=== PATIENT | female | born 1985 | race Caucasian/White ===

== ENCOUNTER 2017-10-16 08:20 | Day surgery (SDC) | payer BC ==
[2017-10-14 14:19] LABS: BASOPHILS # (AUTO) 0.1 X10'3 (0-0.2); BASOPHILS % (AUTO) 1.1 % (0-1); EOSINOPHILS # (AUTO) 0.2 X10'3 (0-0.9); EOSINOPHILS % (AUTO) 1.8 % (0-6); LYMPHOCYTES % (AUTO) 16.9 % (21-51); MEAN CORPUSCULAR HEMOGLOBIN 31.5 PG (27.0-31.0); MEAN CORPUSCULAR HGB CONC 34.5 % (33.0-36.5); MEAN CORPUSCULAR VOLUME 91.4 FL (78-98); MEAN PLATELET VOLUME 7.9 FL (7.4-10.4); MONOCYTES # (AUTO) 0.7 X10'3 (0-0.9); MONOCYTES % (AUTO) 6.4 % (2-12); NEUTROPHILS # (AUTO) 8.6 X10'3 (1.8-7.7); NEUTROPHILS % (AUTO) 73.8 % (42-75); PRE OP HEMATOCRIT 41.4 % (35.0-45.0); PRE OP HEMOGLOBIN 14.3 g/dL (12.0-16.0); PRE OP PLATELET COUNT 390 X10'3 (140-440); RED BLOOD COUNT 4.53 X10'6 (4.20-5.60); RED CELL DISTRIBUTION WIDTH 13.1 % (11.5-14.5)
[2017-10-14 14:26] LABS: CLARITY,URINE CLEAR (Clear); COLOR,URINE YELLOW (Yellow); GLUCOSE, URINE NEGATIVE (Neg); KETONES,URINE NEGATIVE (Neg); LEUKOCYTE ESTERASE ,URINE NEGATIVE (Neg); NITRITES, URINE NEGATIVE (Neg); OCCULT BLOOD,URINE NEGATIVE (Neg); PROTEIN,URINE NEGATIVE (Neg); UROBILINOGEN,URINE 0.2 E.U/dL (0.2-1.0)
[2017-10-14 14:28] LABS: HCG SERUM QL NEGATIVE
[2017-10-14 14:30] LABS: UA COLLECTION TYPE CLN CATCH MIDSTREAM
[2017-10-14 14:32] LABS: ALBUMIN 3.8 G/DL (3.4-5.0); ALBUMIN/GLOBULIN RATIO 0.9 (1.1-1.5); ALKALINE PHOSPHATASE 72 IU/L (46-116); BLOOD UREA NITROGEN 19 MG/DL (7-18); BUN/CREATININE RATIO 21.1 (6.6-38.0); CALCIUM 8.7 MG/DL (8.5-10.1); CHLORIDE 104 MMOL/L (99-107); PRE OP ALT 25 U/L (30-65); PRE OP ANION GAP 7 (8-16); PRE OP AST 20 U/L (10-37); PRE OP BILIRUB, TOTAL 0.4 MG/DL (0.0-1.0); PRE OP GLUCOSE 95 MG/DL (70-104); PRE OP POTASSIUM 4.1 MMOL/L (3.4-5.1); PRE OP SODIUM 138 MMOL/L (135-145); TOTAL CARBON DIOXIDE 26.7 MMOL/L (24-32); TOTAL PROTEIN 7.9 G/DL (6.4-8.2); eGFR 72 ML/MIN
[2017-10-16] VITALS (17 sets, daily range): BP systolic 98–119; BP diastolic 48–71
[~2017-10-16] VITALS: Ht 160 cm; Wt 95.3 kg
[~2017-10-16 08:20] MED LIST: NO HOME MEDS; ceFOXitin 2 GM ADDvantage bag 100 ML IV ONE; famotidine 20mg tablet PO ONE
[2017-10-16] MEDS: ringers solution, lacted 1,000 ML IV SCH ×2 (09:14→19:55)
[2017-10-16] MEDS ORDERED: clindamycin phosphate 40gm vag cream ONE (10:02)
[2017-10-16] MEDS ORDERED: ringers solution, lacted 1,000 ML IV SCH (10:41)
[2017-10-16] MEDS ORDERED: ondansetron/PF 4mg/2ml inj IV PRN ×2 (10:45→13:00)
[2017-10-16] MEDS ORDERED: morphine 4 MG/ML inj SYRINge IV PRN ×2 (10:45)
[2017-10-16] MEDS ORDERED: proCHLORperazine 10 MG/2 ml inj IV PRN (10:45)
[2017-10-16] MEDS ORDERED: meperidine/PF 25mg/ml syringe IV PRN ×2 (10:45)
[2017-10-16] MEDS ORDERED: sevoflurane 250ml liquid IH ONE (11:07)
[2017-10-16] MEDS ORDERED: midazolam 2 mg/2 ml injection ONE (11:14)
[2017-10-16] MEDS ORDERED: fentaNYL/PF 50MCG/1 ML 2ML syringe ONE (11:14)
[2017-10-16] MEDS ORDERED: propofol inj 20 ML IV ONE (11:15)
[2017-10-16] MEDS ORDERED: LIDOcaine 2% (20mg/ml) 5ml vial ONE (11:15)
[2017-10-16] MEDS ORDERED: dexamethasone sod phosphate 4mg/ml inj. ONE (11:15)
[2017-10-16] MEDS ORDERED: ondansetron/PF 4mg/2ml inj ONE (11:16)
[2017-10-16] MEDS ORDERED: ketorolac trometh. 30mg/ml inj. ONE (11:16)
[2017-10-16] MEDS ORDERED: vasoPRESSIN 20 units/ml inj. ONE (12:01)
[2017-10-16] MEDS ORDERED: meperidine/PF 50mg/ml syringe ONE (12:25)
[2017-10-16] MEDS ORDERED: metoclopramide 5 mg/ml inj IV PRN (13:00)
[2017-10-16] MEDS ORDERED: diphenhydrAMINE 50 mg/ml inj IV PRN (13:00)
[2017-10-16] MEDS ORDERED: normal saline 500ml IV soln 500 ML IV PRN (13:00)
[2017-10-16] MEDS ORDERED: HYDROcodone/acetaminophen 10/325mg tab PO PRN ×2 (13:00)
[2017-10-16] MEDS ORDERED: temazepam 15mg capsule PO PRN (13:00)
[2017-10-16] MEDS ORDERED: LORazepam 2 mg/ml vial IV PRN (13:00)
[2017-10-16] MEDS: meperidine/PF 25mg/ml syringe IV PRN ×2 (14:30→14:41)
[2017-10-16] MEDS: ketorolac trometh. 30mg/ml inj. IV PRN ×2 (15:58→23:59)
[2017-10-16] MEDS: simethicone 80mg chew tab PO SCH ×2 (16:16→22:01)
[2017-10-16] MEDS ORDERED: morphine 4 MG/ML inj SYRINge IV ONE (19:40)
[2017-10-16] MEDS: docusate sod 100mg capsule PO SCH (22:00)
[2017-10-17] VITALS: BP 96/48
[2017-10-17 04:00] VITALS: BP 105/55
[2017-10-17 05:21] LABS: BASOPHILS # (AUTO) 0.1 X10'3 (0-0.2); BASOPHILS % (AUTO) 0.4 % (0-1); EOSINOPHILS # (AUTO) 0.1 X10'3 (0-0.9); EOSINOPHILS % (AUTO) 0.3 % (0-6); HEMATOCRIT 37.5 % (35.0-45.0); LYMPHOCYTES # (AUTO) 1.2 X10'3 (1.1-4.8); LYMPHOCYTES % (AUTO) 5.1 % (21-51); MEAN CORPUSCULAR HEMOGLOBIN 31.8 PG (27.0-31.0); MEAN CORPUSCULAR HGB CONC 34.7 % (33.0-36.5); MEAN CORPUSCULAR VOLUME 91.5 FL (78-98); MEAN PLATELET VOLUME 8.3 FL (7.4-10.4); MONOCYTES # (AUTO) 0.9 X10'3 (0-0.9); MONOCYTES % (AUTO) 3.7 % (2-12); NEUTROPHILS # (AUTO) 21.2 X10'3 (1.8-7.7); NEUTROPHILS % (AUTO) 90.5 % (42-75); PLATELET COUNT 356 X10'3 (140-440); RED CELL DISTRIBUTION WIDTH 12.9 % (11.5-14.5); WHITE BLOOD COUNT 23.4 X10'3 (4.5-11.0)
[2017-10-17 05:32] LABS: ALBUMIN 2.9 G/DL (3.4-5.0); ANION GAP 9 (8-16); BLOOD UREA NITROGEN 12 MG/DL (7-18); CALCIUM 8.4 MG/DL (8.5-10.1); CHLORIDE 105 MMOL/L (99-107); CREATININE 0.86 MG/DL (0.40-0.90); GLUCOSE 119 MG/DL (70-104); POTASSIUM 4.3 MMOL/L (3.5-5.1); SODIUM 140 MMOL/L (135-145); TOTAL CARBON DIOXIDE 26.3 MMOL/L (24-32); eGFR 76 ML/MIN
[2017-10-17] MEDS: simethicone 80mg chew tab PO SCH ×2 (07:09→12:53)
[2017-10-17] MEDS: docusate sod 100mg capsule PO SCH (07:09)
[2017-10-17] MEDS: ketorolac trometh. 30mg/ml inj. IV PRN ×2 (07:09→12:53)
[2017-10-17] MEDS ORDERED: enoxaparin 40mg/0.4ml syringe SQ SCH (08:00)
[2017-10-17 11:00] VITALS: BP 118/64
== END 2017-10-17 14:18 | disposition home or self-care (01) ==
LOC: PAS 08:20 → SUR 3N 13:00 → PAS 10-17 14:18
PROVIDERS: ATTEND Obstetrics & Gynecology Obstetrics
DX: T83.89XA Other specified complication of genitourinary prosthetic devices, implants and grafts, initial encounter (principal); N81.6 Rectocele; N81.11 Cystocele, midline; J45.998 Other asthma; K21.9 Gastro-esophageal reflux disease without esophagitis; E66.01 Morbid (severe) obesity due to excess calories; Z79.1 Long term (current) use of non-steroidal anti-inflammatories (NSAID); Z79.891 Long term (current) use of opiate analgesic; Z68.37 Body mass index [BMI] 37.0-37.9, adult; Z91.048 Other nonmedicinal substance allergy status; Z98.890 Other specified postprocedural states; Z79.899 Other long term (current) drug therapy; Z88.8 Allergy status to other drugs, medicaments and biological substances; Y83.9 Surgical procedure, unspecified as the cause of abnormal reaction of the patient, or of later complication, without mention of misadventure at the time of the procedure; Y92.9 Unspecified place or not applicable
CPT/HCPCS: 36415; 57260; 58562; 80048; 80053; 81003; 84703; 85025; 86885; 86900; 86901; 87070; A4344; A4355; A6255; J0694; J1100; J1650; J1885; J2001; J2175; J2250; J2270; J2405; J2704; J3010; J3490; J7030; J7120; A7000

== ENCOUNTER 2020-10-19 16:22 | Outpatient (CLI) | payer BC ==
[~2020-10-19 16:22] MED LIST changes: -ceFOXitin 2 GM ADDvantage bag 100 ML IV ONE; -famotidine 20mg tablet PO ONE
[2020-10-19 18:26] LABS: % IRON SATURATION 26 % (11-46); IRON 92 UG/DL (49-151); TOTAL IRON BINDING CAPACITY 355 UG/DL (259-388)
[2020-10-19 18:33] LABS: FERRITIN 79 NG/ML (8-252)
[2020-10-19 18:41] LABS: C-REACTIVE PROTEIN < 0.05 MG/DL (0.0-0.5)
[2020-10-19 19:03] LABS: RHEUM FACTOR QUAL REFLEX TITER NEGATIVE (Neg)
[2020-10-19 19:10] LABS: PARTIAL THROMBOPLASTIN TIME 29 SECONDS (22-32)
== END 2020-10-19 23:59 | disposition home or self-care (01) ==
LOC: LAB 16:22
PROVIDERS: ATTEND Family Medicine
DX: Z00.00 Encounter for general adult medical examination without abnormal findings (principal); R53.83 Other fatigue; M79.10 Myalgia, unspecified site; R58 Hemorrhage, not elsewhere classified; H04.123 Dry eye syndrome of bilateral lacrimal glands
CPT/HCPCS: 36415; 82728; 83540; 83550; 85610; 85651; 85730; 86038; 86140; 86430

== ENCOUNTER 2021-05-25 10:57 | Outpatient (CLI) | payer BC ==
[2021-05-25 11:47] LABS: BASOPHILS % (AUTO) 0.5 % (0-1); EOSINOPHILS # (AUTO) 0.2 X10'3 (0-0.9); EOSINOPHILS % (AUTO) 1.7 % (0-6); HEMATOCRIT 40.8 % (35.0-45.0); LYMPHOCYTES # (AUTO) 1.6 X10'3 (1.1-4.8); LYMPHOCYTES % (AUTO) 17.3 % (21-51); MEAN CORPUSCULAR HEMOGLOBIN 31.6 PG (27.0-31.0); MEAN CORPUSCULAR HGB CONC 34.3 g/dL (33.0-36.5); MEAN CORPUSCULAR VOLUME 91.9 FL (78-98); MEAN PLATELET VOLUME 7.5 FL (7.4-10.4); MONOCYTES # (AUTO) 0.7 X10'3 (0-0.9); MONOCYTES % (AUTO) 7.6 % (2-12); NEUTROPHILS # (AUTO) 6.8 X10'3 (1.8-7.7); NEUTROPHILS % (AUTO) 72.9 % (42-75); PLATELET COUNT 366 X10'3 (140-440); RED BLOOD COUNT 4.43 X10'6 (4.20-5.60); RED CELL DISTRIBUTION WIDTH 13.9 % (11.5-14.5); WHITE BLOOD COUNT 9.3 X10'3 (4.5-11.0)
[2021-05-25 11:58] LABS: HEMOGLOBIN A1C 5.4 % (4.5-6.2)
[2021-05-25 12:16] LABS: RHEUM FACTOR QUAL REFLEX TITER NEGATIVE (Neg)
[2021-05-25 13:11] LABS: ALANINE AMINOTRANSFERASE 33 U/L (12-78); ALBUMIN 3.9 G/DL (3.4-5.0); ALBUMIN/GLOBULIN RATIO 1.1 (1.1-1.5); ALKALINE PHOSPHATASE 57 IU/L (46-116); ANION GAP 10 (8-16); ASPARTATE AMINO TRANSFERASE 22 U/L (10-37); BILIRUBIN,TOTAL 0.4 MG/DL (0.1-1.0); BLOOD UREA NITROGEN 20 MG/DL (7-18); BUN/CREATININE RATIO 20.8 (6.6-38.0); C-REACTIVE PROTEIN 0.22 MG/DL (0.0-0.5); CALCIUM 8.6 MG/DL (8.5-10.1); CHLORIDE 105 MMOL/L (99-107); CHOL/HDL RATIO 3.6 (0.00-4.99); CHOLESTEROL 225 MG/DL (0-200); CREATININE 0.96 MG/DL (0.40-0.90); GLUCOSE 89 MG/DL (70-104); HDL CHOLESTEROL 62 MG/DL (35-60); LDL CHOLESTEROL 131 MG/DL (50-100); POTASSIUM 4.5 MMOL/L (3.5-5.1); SODIUM 140 MMOL/L (135-145); TOTAL PROTEIN 7.3 G/DL (6.4-8.2); TRIGLYCERIDES 108 MG/DL (20-135); eGFR 65 ML/MIN
[2021-05-26 16:57] LABS: ANTINUCLEAR ANTIBODIES Negative (Negative); EBV AB VCA, IGM <36.0 U/mL (0.0-35.9)
== END 2021-05-25 23:59 | disposition home or self-care (01) ==
LOC: LAB 10:57
PROVIDERS: ATTEND Family Medicine
DX: E03.9 Hypothyroidism, unspecified (principal); R53.83 Other fatigue; M25.50 Pain in unspecified joint; M79.7 Fibromyalgia; R63.5 Abnormal weight gain; Z83.3 Family history of diabetes mellitus
CPT/HCPCS: 36415; 80053; 80061; 82306; 82607; 83036; 84439; 84443; 85025; 85651; 86038; 86140; 86200; 86430; 86663; 86664; 86665

== ENCOUNTER 2021-07-10 13:26 | Outpatient (CLI) | payer BC ==
[2021-07-12 11:06] LABS: FSH, SERUM 4.9 mIU/mL (.); LUTEINIZING HORMONE 11.1 mIU/mL (.)
== END 2021-07-10 23:59 | disposition home or self-care (01) ==
LOC: LAB 13:26
PROVIDERS: ATTEND Nurse Practitioner Family
DX: N95.1 Menopausal and female climacteric states (principal); M25.50 Pain in unspecified joint; M79.10 Myalgia, unspecified site
CPT/HCPCS: 36415; 83001; 83002; 86235

== ENCOUNTER 2022-01-28 21:17 | Emergency (ER) | payer BC ==
[~2022-01-28] VITALS: Ht 160 cm; Wt 81.8 kg
[2022-01-28 22:04] VITALS: BP 148/96
[2022-01-28 22:06] LABS: BASOPHILS # (AUTO) 0.1 X10'3 (0-0.2); EOSINOPHILS # (AUTO) 0.2 X10'3 (0-0.9); EOSINOPHILS % (AUTO) 1.9 % (0-6); HEMATOCRIT 39.7 % (35.0-45.0); HEMOGLOBIN 13.7 g/dl (12.0-16.0); LYMPHOCYTES # (AUTO) 2.4 X10'3 (1.1-4.8); LYMPHOCYTES % (AUTO) 24.5 % (21-51); MEAN CORPUSCULAR HEMOGLOBIN 30.9 PG (27.0-31.0); MEAN CORPUSCULAR HGB CONC 34.6 g/dL (33.0-36.5); MEAN CORPUSCULAR VOLUME 89.3 FL (78-98); MEAN PLATELET VOLUME 7.1 FL (7.4-10.4); MONOCYTES # (AUTO) 0.9 X10'3 (0-0.9); MONOCYTES % (AUTO) 8.7 % (2-12); NEUTROPHILS # (AUTO) 6.4 X10'3 (1.8-7.7); NEUTROPHILS % (AUTO) 63.9 % (42-75); PLATELET COUNT 422 X10'3 (140-440); RED BLOOD COUNT 4.44 X10'6 (4.20-5.60); RED CELL DISTRIBUTION WIDTH 13.5 % (11.5-14.5)
[2022-01-28 22:27] LABS: ALANINE AMINOTRANSFERASE 28 U/L (12-78); ALBUMIN 3.7 G/DL (3.4-5.0); ALBUMIN/GLOBULIN RATIO 1.1 (1.1-1.5); ALKALINE PHOSPHATASE 71 IU/L (46-116); ANION GAP 9 (8-16); ASPARTATE AMINO TRANSFERASE 19 U/L (10-37); BILIRUBIN,TOTAL 0.3 MG/DL (0.1-1.0); BLOOD UREA NITROGEN 18 MG/DL (7-18); BUN/CREATININE RATIO 20.2 (6.6-38.0); CALCIUM 8.4 MG/DL (8.5-10.1); CHLORIDE 103 MMOL/L (99-107); CREATININE 0.89 MG/DL (0.40-0.90); GLUCOSE 99 MG/DL (70-104); POTASSIUM 4.3 MMOL/L (3.5-5.1); SODIUM 137 MMOL/L (135-145); TOTAL CARBON DIOXIDE 25.4 MMOL/L (24-32); TOTAL PROTEIN 7.2 G/DL (6.4-8.2); eGFR 71 ML/MIN
[2022-01-28 22:42] LABS: CLARITY,URINE CLEAR (Clear); COLOR,URINE YELLOW (Yellow); GLUCOSE, URINE NEGATIVE (Neg); KETONES,URINE NEGATIVE (Neg); LEUKOCYTE ESTERASE ,URINE NEGATIVE (Neg); NITRITES, URINE NEGATIVE (Neg); OCCULT BLOOD,URINE NEGATIVE (Neg); PROTEIN,URINE NEGATIVE (Neg); URINE HCG NEGATIVE (NEG); UROBILINOGEN,URINE 0.2 E.U/dL (0.2-1.0)
[2022-01-28] MEDS ORDERED: normal saline 1000ML IV soln IVB ONE (23:05)
[2022-01-28] MEDS ORDERED: ondansetron 4mg rapidly disintigrating tab PO ONE (23:05)
[2022-01-28 23:11] LABS: UA COLLECTION TYPE CLN CATCH MIDSTREAM
--- NOTE | 2022-01-29 00:51 | NUR ---
IV DC'D PT BEING DISCHARGED DRESSING APPLIED
== END 2022-01-29 00:52 | disposition home or self-care (01) ==
LOC: ER 21:18
DX: B34.9 Viral infection, unspecified (principal); E03.9 Hypothyroidism, unspecified; Z79.899 Other long term (current) drug therapy; Z88.8 Allergy status to other drugs, medicaments and biological substances
CPT/HCPCS: 36415; 80053; 81003; 81025; 84439; 84443; 85025; 93005; 96360; 99284; J7030

== ENCOUNTER 2023-04-30 10:43 | Outpatient (CLI) | payer BC ==
[~2023-04-30 10:43] MED LIST changes: +CEPH-585 PO
== END 2023-04-30 23:59 | disposition home or self-care (01) ==
LOC: RAD 10:43
PROVIDERS: ATTEND Nurse Practitioner Family
DX: S83.012A Lateral subluxation of left patella, initial encounter (principal); M25.462 Effusion, left knee; R60.0 Localized edema; M25.562 Pain in left knee; X58.XXXA Exposure to other specified factors, initial encounter; Y93.89 Activity, other specified; Y92.89 Other specified places as the place of occurrence of the external cause; Y99.8 Other external cause status
CPT/HCPCS: 73721

== ENCOUNTER 2024-03-09 21:51 | Emergency (ER) | payer BC ==
[~2024-03-09] VITALS: Ht 160 cm; Wt 81.8 kg
[2024-03-09] MEDS: normal saline 1000ML IV soln IVB ONE (22:47)
[2024-03-09] MEDS ORDERED: PRED20TA PO (22:57)
[2024-03-09] MEDS ORDERED: AZIT-164 PO (22:57)
[2024-03-09 23:05] LABS: ALANINE AMINOTRANSFERASE 25 U/L (12-78); ALBUMIN 3.7 G/DL (3.4-5.0); ALBUMIN/GLOBULIN RATIO 1.1 (1.1-1.5); ALKALINE PHOSPHATASE 52 IU/L (46-116); ANION GAP 4 (8-16); ASPARTATE AMINO TRANSFERASE 19 U/L (10-37); BILIRUBIN,TOTAL 0.5 MG/DL (0.1-1.0); BLOOD UREA NITROGEN 17 MG/DL (7-18); BUN/CREATININE RATIO 15.7 (10.0-20.0); CALCIUM 8.1 MG/DL (8.5-10.1); CHLORIDE 109 MMOL/L (99-107); CREATININE 1.08 MG/DL (0.40-0.90); GLUCOSE 78 MG/DL (70-104); POTASSIUM 4.3 MMOL/L (3.5-5.1); SODIUM 143 MMOL/L (135-145); TOTAL CARBON DIOXIDE 29.8 MMOL/L (24-32); TOTAL PROTEIN 7.1 G/DL (6.4-8.2); eCRCL 57 ML/MIN; eGFR 56 ML/MIN
[2024-03-09 23:07] LABS: BASOPHILS # (AUTO) 0.1 X10'3 (0-0.2); BASOPHILS % (AUTO) 0.7 % (0-1); EOSINOPHILS # (AUTO) 0.3 X10'3 (0-0.9); EOSINOPHILS % (AUTO) 2.5 % (0-6); HEMATOCRIT 37.4 % (35.0-45.0); HEMOGLOBIN 12.9 g/dl (12.0-16.0); LYMPHOCYTES # (AUTO) 3.3 X10'3 (1.1-4.8); LYMPHOCYTES % (AUTO) 28.8 % (21-51); MEAN CORPUSCULAR HEMOGLOBIN 32.2 PG (27.0-31.0); MEAN CORPUSCULAR HGB CONC 34.4 g/dL (33.0-36.5); MEAN CORPUSCULAR VOLUME 93.5 FL (78-98); MEAN PLATELET VOLUME 8.1 FL (7.4-10.4); MONOCYTES # (AUTO) 1.3 X10'3 (0-0.9); NEUTROPHILS # (AUTO) 6.5 X10'3 (1.8-7.7); PLATELET COUNT 363 X10'3 (140-440); RED CELL DISTRIBUTION WIDTH 13.7 % (11.5-14.5); WHITE BLOOD COUNT 11.4 X10'3 (4.5-11.0)
[2024-03-09] MEDS: azithromycin 250mg tablet PO ONE (23:09)
[2024-03-09] MEDS: predniSONE 20 mg tablet PO ONE (23:09)
[2024-03-09 23:16] LABS: BILIRUBIN,DIRECT 0.1 MG/DL (0-0.3); MAGNESIUM 1.9 MG/DL (1.5-2.4); THYROID STIMULATING HORMONE 6.22 ulU/ml (0.34-4.50)
[2024-03-09 23:36] LABS: BILIRUBIN,URINE NEGATIVE (Neg); CLARITY,URINE CLEAR (Clear); COLOR,URINE YELLOW (Yellow); GLUCOSE, URINE NEGATIVE (Neg); KETONES,URINE NEGATIVE (Neg); LEUKOCYTE ESTERASE ,URINE NEGATIVE (Neg); NITRITES, URINE NEGATIVE (Neg); OCCULT BLOOD,URINE NEGATIVE (Neg); PROTEIN,URINE NEGATIVE (Neg); UROBILINOGEN,URINE 0.2 E.U/dL (0.2-1.0)
[2024-03-09 23:38] LABS: UA COLLECTION TYPE CLN CATCH MIDSTREAM
[2024-03-09] MEDS: ipratropium/albuterol 3ml nebule NEB ONE (23:55)
[2024-03-09 23:58] VITALS: PULSE 77; RESP 16; O2SAT 98
[2024-03-10 00:09] VITALS: PULSE 100; RESP 16; O2SAT 100
[2024-03-10] MEDS ORDERED: ALB0.5UD NEB (00:11)
[2024-03-10 00:16] VITALS: BP 126/69; PULSE 102; RESP 18; TEMP 98.9; O2SAT 100
== END 2024-03-10 00:18 | disposition home or self-care (01) ==
LOC: ER 21:51
DX: J20.9 Acute bronchitis, unspecified (principal); J00 Acute nasopharyngitis [common cold]; J45.909 Unspecified asthma, uncomplicated; E03.9 Hypothyroidism, unspecified; Z88.8 Allergy status to other drugs, medicaments and biological substances; Z79.899 Other long term (current) drug therapy
CPT/HCPCS: 36415; 71045; 80048; 80076; 81003; 83735; 84443; 85025; 94640; 96360; 99284; J7030; J7512; 94760

== ENCOUNTER 2024-05-24 18:44 | Emergency (ER) | payer BC ==
[~2024-05-24] VITALS: Ht 160 cm; Wt 89.9 kg
[~2024-05-24 18:44] MED LIST changes: -CEPH-585 PO
[2024-05-24 19:15] VITALS: BP 125/76; PULSE 70; TEMP 97.9; O2SAT 100
[2024-05-24] MEDS: ondansetron 4mg rapidly disintigrating tab PO ONE (21:09)
[2024-05-24 21:10] VITALS: RESP 16
[2024-05-24] MEDS: HYDROcodone/acetaminophen 5mg/325mg tablet PO ONE (21:10)
[2024-05-24] MEDS: bacitracin 15gm ointment TP ONE (21:10)
[2024-05-24] MEDS: TETanus/Pertussis (Acell)/Diphther VAC/PF (Tdap-Adult) 0.5ml syringe IMVAC ONE (21:12)
== END 2024-05-24 21:19 | disposition home or self-care (01) ==
LOC: ER 18:44
DX: S61.212A Laceration without foreign body of right middle finger without damage to nail, initial encounter (principal); E03.9 Hypothyroidism, unspecified; J45.909 Unspecified asthma, uncomplicated; Z98.890 Other specified postprocedural states; X58.XXXA Exposure to other specified factors, initial encounter; Y93.89 Activity, other specified; Y92.89 Other specified places as the place of occurrence of the external cause; Y99.8 Other external cause status
CPT/HCPCS: 12001; 73130; 90471; 90715; 99283; 99284

== ENCOUNTER 2024-08-23 01:43 | Emergency (ER) | payer BC ==
[~2024-08-23] VITALS: Ht 160 cm; Wt 93.2 kg
[2024-08-23 01:54] VITALS: BP 107/70; PULSE 66; RESP 16; TEMP 98.1; O2SAT 98
--- NOTE | 2024-08-23 01:56 | Physician Documentation ---
History of Present Illness ~ Stated Complaint: CHEST COLD Time Seen by MD: 01:55 Primary Medical Doctor: None HPI 38-year-old female, history of asthma, presenting with cough and shortness of breath. She tells me she has a history of asthma as well as a history of recurrent bronchitis. She states that over the past week she has been having increased coughing and some mild upper respiratory type infection symptoms. The cough is painful, nonproductive. She states it is difficult to sleep. She also has been using her albuterol inhaler more frequently than usual. She tells me in the past she normally gets treated with steroids which seemed to help with all of the symptoms. No definite fevers. No productive cough. No vomiting or diarrhea. She has been taking cough and cold medications without much relief. She feels like she is getting worse over the past couple of days. Medication Reconciliation Allergies: Coded Allergies: methylchloroisothiazolinone (Verified Allergy, Intermediate, RASH/ITCHING, 10/14/17) Uncoded Allergies: TRANSPARENT TAPE (Allergy, Unknown, 03/11/14) Miscellaneous Medications Home Med List (No Home Medications), (Reported) Past Medical History Past Medical History: Asthma, Hypothyroidism Past Surgical History: no surgical history, orthopedic surgeries Alcohol Use: None Drug Use: none Lives In: Home Review of Systems Constitutional: Denies: fever Respiratory: Reports: cough, shortness of breath Gastrointestinal: Denies: abdominal pain Physical Exam Physical Exam General: This is a healthy but tired appearing young woman, not in distress HEENT: Atraumatic, oropharynx is moist Heart: Regular rate and rhythm, normal-appearing peripheral perfusion Lungs: Occasional harsh nonproductive cough. The patient has tight breath sounds bilateral with few scattered expiratory wheezes and a mildly prolonged expiratory phase, but no focal consolidation or crackles Neuro: Alert and oriented, no focal deficits Psychiatric: Appears tired but is cooperative with exam Progress Results/Orders Results/Orders Completed Orders - JOE URBINA MD Ketorolac Trometh 15mg/Ml Vial (Toradol (08/23/24 02:00) Triamcinolone Acet 40mg/Ml Inj (Kenalog- (08/23/24 02:00) Medications Received in ER Medications (Trade) Dose Ordered Sig/Christopher Route PRN Reason Start Time Stop Time Status Last Admin Dose Admin (Toradol injection) 15 mg ONCE ONCE IM 08/23/24 02:00 08/23/24 02:01 DC 08/23/24 02:03 15 MG (Kenalog-40 inj) 60 mg ONCE ONCE IM 08/23/24 02:00 08/23/24 02:01 DC 08/23/24 02:03 60 MG Vital Signs 08/23/24 01:54 Temp 98.1 Pulse 66 Resp 16 B/P (MAP) 107/70 Pulse Ox 98 O2 Flow Rate 0 Medical Decision Making Differential Dx:Considerations: Include: Allergic rhinitis, Pharyngitis-Viral, Pneumonia, Sinusitis, URI Differential Diagnosis Differential includes asthma exacerbation Assessment 38-year-old female with a history of asthma and recurrent bronchitis who presents with a worsening cough and fatigue. Per her history and exam this all appears consistent with an upper respiratory infection triggering bronchitis. She does not have respiratory distress or significant only worsening asthma symptoms. No findings to suggest pneumonia. I do not feel that a chest x-ray is indicated. After shared decision-making conversation we decided to proceed with the shot of Toradol and a shot of Kenalog. She will continue with symptomatic treatment. She will return to the ER if she has worsening symptoms. Departure Time of Disposition: 01:57 Disposition: 01 HOME / SELF CARE / HOMELESS Impression: Primary Impression: Acute bronchitis Condition: Stable Discharge Instructions: Acute Bronchitis, Adult Referrals: NO PRIMARY CARE PROVIDER (PCP) Education Educated: Patient Educated regarding: diagnosis, treatment Signature Scribe Signature: kelsey Attestation: JOE Chowdhury MD August 23, 2024 01:56
[2024-08-23] MEDS: triamcinolone acetonide 40mg/ml inj IM ONE (02:03)
[2024-08-23] MEDS: ketorolac trometh 15mg/ml vial 15 MG/ML ML IM ONE (02:03)
== END 2024-08-23 02:09 | disposition home or self-care (01) ==
LOC: ER 01:44
DX: J20.9 Acute bronchitis, unspecified (principal); E03.9 Hypothyroidism, unspecified; J45.909 Unspecified asthma, uncomplicated
CPT/HCPCS: 96372; 99284; J1885; J3301